=== PATIENT | female | born 1990 | race Caucasian/White ===

== ENCOUNTER 2018-03-28 11:53 | Emergency (ER) | payer OTHER, SELFPAY ==
[2018-03-28 12:12] VITALS: BP 142/90; PULSE 105; RESP 20; TEMP 37.3; O2SAT 100
--- NOTE | 2018-03-28 13:41 | DI.RAD.S_ITS ---
PROCEDURE: XR ABDOMEN MIN 2V INDICATIONS: Nausea vomiting generalized abdominal pain TECHNIQUE: 2 views of the abdomen were acquired. COMPARISON: None. FINDINGS: Surgical changes and devices: None. Bowel: No pneumoperitoneum. The bowel gas pattern is normal. Soft tissues: No masses; visualized solid organ contours appear normal in size. No suspicious abdominal calcifications. Bones: No suspicious bony abnormalities. IMPRESSION: No acute process. Dictated by: Carmen Mejia M.D. on 03/28/2018 at 14:30 Approved by: Carmen Mejia M.D. on 03/28/2018 at 14:30
[2018-03-28 13:45] VITALS: BP 126/84; PULSE 97; RESP 18; O2SAT 100
[2018-03-28 14:03] VITALS: BP 126/86; PULSE 90; RESP 19; O2SAT 100
[2018-03-28] MEDS: SODIUM CHLORIDE 0.9% 1,000 ML 1000 ML IV (14:03)
[2018-03-28] MEDS: KETOROLAC 60 MG/2 ML VIAL 30 MG IV (14:03)
[2018-03-28] MEDS: ONDANSETRON 4 MG/2 ML INJ IV (14:03)
[2018-03-28] MEDS: METOCLOPRAMIDE 10 MG/2 ML INJ IV (14:03)
[2018-03-28] MEDS: diphenhydrAMINE 50 MG/ML VIAL 25 MG IV (14:04)
[2018-03-28 14:06] LABS: Add Manual Diff / Slide Review NO; Basophils Percent Auto 0.2 % (0-2); Eosinophils Percent Auto 0.2 % (2-4); Hemoglobin 12.1 g/dL (12.0-16.0); Lymphocytes Percent Auto 15.9 % (25-40); Mean Corpuscular HGB Conc 34.5 % (30-36); Mean Corpuscular Hemoglobin 29.7 PG (26-34); Mean Corpuscular Volume 85.9 fL (80-100); Neutrophils Absolute Auto 4100 /uL (3000-5900); Neutrophils Percent Auto 74.7 % (50-75); Platelet Count 159 X10^3/uL (150-400); Red Blood Cell Count 4.07 X10^6/uL (4.0-5.2); Red Cell Distribution Width 13.3 % (11.6-14.8); White Blood Cell Count 5.5 X10^3/uL (4.5-11.0)
[2018-03-28 14:15] LABS: Alanine Aminotransferase 34 IU/L (9-52); Albumin Globulin Ratio 1.5 (1.0-2.8); Alkaline Phosphatase 57 U/L (38-126); Aspartate Aminotransferase 33 IU/L (14-36); BUN Creatinine Ratio 12.9 (6-22); Bilirubin Total 0.6 mg/dL (0.2-1.3); Blood Urea Nitrogen 9 mg/dL (7-17); Carbon Dioxide 25 mmol/L (22-32); Chloride 100 mmol/L (98-107); Estimated Glomerular Filt Rate > 60.0 mL/min (>60); Globulin 2.7 g/dL (1.7-4.1); Glucose 100 mg/dL (70-100); HEMOLYSIS < 15 (0-50); Lipase 42 U/L (23-300); Potassium 3.4 mmol/L (3.4-5.1); Sodium 139 mmol/L (137-145); Total Protein 6.7 g/dL (6.3-8.2)
--- NOTE | 2018-03-28 14:51 | ED_ITS ---
HPI - Abdominal Pain <LIZET Cuadra - Last Filed: 03/28/18 21:57> General Chief Complaint: Abdominal Pain Stated Complaint: GASTROENESTINAL ISSUES Time Seen by Provider: 03/28/18 13:34 Source: patient History of Present Illness HPI narrative: Healthy 27-year-old female here for complaint of having nausea vomiting diarrhea that started last night. She also reports having generalized crampy abdominal pain. She denies any contacts her family members having same symptoms. She reports decreased p.o. intake due to the nausea or vomiting. She denies any fevers but she states states that she had some mild chills. She denies any urinary symptoms. She stated she took Zofran early this morning to help with nausea. She does report that the nausea has not resolved. She denies any other concerns or complaints. Related Data Previous Rx's Medication Instructions Recorded ondansetron 4 mg PO Q6H PRN #10 tab 03/28/18 promethazine 12.5 mg PO Q4-6H PRN #10 tab 03/28/18 Allergies Allergy/AdvReac Type Severity Reaction Status Date / Time No Known Drug Allergies Allergy Verified 03/28/18 12:15 Review of Systems <LIZET Cuadra - Last Filed: 03/28/18 21:57> Constitutional Reports chills Eyes Denies change in vision, Denies eye discharge, Denies irritation and Denies loss of vision ENT Ears, Nose, Mouth, and Throat: Denies change in voice, Denies neck pain and Denies sore throat Cardiovascular Denies chest pain, Denies irregular heart rhythm, Denies lightheadedness, Denies palpitations, Denies dyspnea, Denies dyspnea on exertion and Denies orthopnea Respiratory Denies cough, Denies dyspnea, Denies dyspnea on exertion and Denies wheezing Gastrointestinal Gastrointestinal: Reports abdominal pain, Reports diarrhea, Reports nausea and Reports vomiting Genitourinary Denies hematuria, Denies flank pain, Denies urinary incontinence and Denies urinary urgency Musculoskeletal Denies neck pain Integumentary/Breasts Denies pruritus, Denies erythema, Denies rash and Denies wounds Neurologic Denies confusion and Denies loss of vision Psychiatric Denies anxiety, Denies confusion, Denies depression, Denies homicidal ideation and Denies suicidal ideation Endocrine Denies palpitations Hematologic/Lymphatic Denies easy bruising Allergic/Immunologic Denies wheezing Exam <LIZET Cuadra - Last Filed: 03/28/18 21:57> Initial Vital Signs Initial Vital Signs: Vital Signs Temperature 99.1 F 03/28/18 12:12 Pulse Rate 105 H 03/28/18 12:12 Respiratory Rate 20 03/28/18 12:12 Blood Pressure 142/90 H 03/28/18 12:12 Pulse Oximetry 100 03/28/18 12:12 Const General: cooperative and well developed Nutritional Appearance: well nourished Orientation: alert, awake, oriented x3 and not confused HENCA Mouth: oral mucosae normal and moist mucous membranes Eyes Conjunctivae: conjunctivae normal Sclera: sclerae normal Pupils: PERRL EOM: EOM intact bilaterally Resp Effort & Inspection: normal respiratory effort, able to speak in complete sentences, no respiratory distress and no use of accessory muscles Auscultation: clear to auscultation bilaterally, no rales, no rhonchi and no wheezes Cardio Rate: regular rate Rhythm: regular rhythm Heart Sounds: no click, no gallops, no murmurs and no rubs GI Inspection: non-distended Palpation: soft, no hepatosplenomegaly, No guarding, No pulsatile mass and tender (Generalized tenderness) Auscultation: normal bowel sounds General: No CVA tenderness Skin General: no rashes or lesions noted, No jaundice and No petechiae <Jolly Carrizales DO - Last Filed: 03/31/18 19:49> Initial Vital Signs Initial Vital Signs: Vital Signs Temperature 99.1 F 03/28/18 12:12 Pulse Rate 105 H 03/28/18 12:12 Respiratory Rate 20 03/28/18 12:12 Blood Pressure 142/90 H 03/28/18 12:12 Pulse Oximetry 100 03/28/18 12:12 Course <LIZET Cuadra - Last Filed: 03/28/18 21:57> Orders Ordered: Discontinued Medications Diphenhydramine HCl (Benadryl) 25 mg IV NOW ONE Stop: 03/28/18 13:41 Last Admin: 03/28/18 14:04 Dose: 25 mg Sodium Chloride (Normal Saline 0.9%) 1,000 mls @ 1,000 mls/hr IV BOLUS ONE Stop: 03/28/18 14:39 Last Infusion: 03/28/18 15:11 Dose: 0 mls/hr Admin: 03/28/18 14:03 Dose: 1,000 mls/hr Ketorolac Tromethamine (Toradol) 30 mg IV NOW ONE Stop: 03/28/18 13:41 Last Admin: 03/28/18 14:03 Dose: 30 mg Metoclopramide HCl (Reglan) 10 mg IV NOW ONE Stop: 03/28/18 13:41 Last Admin: 03/28/18 14:03 Dose: 10 mg Ondansetron HCl (Zofran) 4 mg IV NOW ONE Stop: 03/28/18 13:41 Last Admin: 03/28/18 14:03 Dose: 4 mg Vital Signs - 8 hr 03/28/18 14:03 03/28/18 15:03 Pulse Rate 90 97 H Respiratory Rate 19 15 Blood Pressure [Left Arm] 126/86 H 118/83 H Pulse Oximetry 100 100 <Jolly Carrizales DO - Last Filed: 03/31/18 19:49> Orders Ordered: Discontinued Medications Diphenhydramine HCl (Benadryl) 25 mg IV NOW ONE Stop: 03/28/18 13:41 Last Admin: 03/28/18 14:04 Dose: 25 mg Sodium Chloride (Normal Saline 0.9%) 1,000 mls @ 1,000 mls/hr IV BOLUS ONE Stop: 03/28/18 14:39 Last Infusion: 03/28/18 15:11 Dose: 0 mls/hr Admin: 03/28/18 14:03 Dose: 1,000 mls/hr Ketorolac Tromethamine (Toradol) 30 mg IV NOW ONE Stop: 03/28/18 13:41 Last Admin: 03/28/18 14:03 Dose: 30 mg Metoclopramide HCl (Reglan) 10 mg IV NOW ONE Stop: 03/28/18 13:41 Last Admin: 03/28/18 14:03 Dose: 10 mg Ondansetron HCl (Zofran) 4 mg IV NOW ONE Stop: 03/28/18 13:41 Last Admin: 03/28/18 14:03 Dose: 4 mg Vital Signs - 8 hr 03/28/18 14:03 03/28/18 15:03 Pulse Rate 90 97 H Respiratory Rate 19 15 Blood Pressure [Left Arm] 126/86 H 118/83 H Pulse Oximetry 100 100 MDM - Abdominal Pain <Luis Miguel McgovernLIZET - Last Filed: 03/28/18 21:57> Lab Data Result diagrams: 03/28/18 13:58 03/28/18 13:58 Lab Results 03/28/18 03/28/18 Range/Units 13:58 13:58 WBC 5.5 (4.5-11.0) X10^3/uL RBC 4.07 (4.0-5.2) X10^6/uL Hgb 12.1 (12.0-16.0) g/dL Hct 35.0 L (36-46) % MCV 85.9 (80-100) fL MCH 29.7 (26-34) PG MCHC 34.5 (30-36) % RDW 13.3 (11.6-14.8) % Plt Count 159 (150-400) X10^3/uL Neut % (Auto) 74.7 (50-75) % Lymph % (Auto) 15.9 L (25-40) % [place] % (Auto) 9.0 (3-14) % Eos % (Auto) 0.2 L (2-4) % Baso % (Auto) 0.2 (0-2) % Neut # (Auto) 4100 (3938-2239) /uL Sodium 139 (137-145) mmol/L Potassium 3.4 (3.4-5.1) mmol/L Chloride 100 (98-107) mmol/L Carbon Dioxide 25 (22-32) mmol/L BUN 9 (7-17) mg/dL Creatinine 0.70 (0.52-1.04) mg/dL Estimated GFR > 60.0 (>60) mL/min BUN/Creatinine Ratio 12.9 (6-22) Glucose 100 (70-100) mg/dL Calcium 9.0 (8.4-10.2) mg/dL Total Bilirubin 0.6 (0.2-1.3) mg/dL AST 33 (14-36) IU/L ALT 34 (9-52) IU/L Alkaline Phosphatase 57 (38-126) U/L Total Protein 6.7 (6.3-8.2) g/dL Albumin 4.0 (3.5-5.0) g/dL Globulin 2.7 (1.7-4.1) g/dL Albumin/Globulin Ratio 1.5 (1.0-2.8) Lipase 42 (23-300) U/L Imaging Data Abdominal x-ray: Radiologist's impression: PROCEDURE: XR ABDOMEN MIN 2V INDICATIONS: Nausea vomiting generalized abdominal pain TECHNIQUE: 2 views of the abdomen were acquired. COMPARISON: None. FINDINGS: Surgical changes and devices: None. Bowel: No pneumoperitoneum. The bowel gas pattern is normal. Soft tissues: No masses; visualized solid organ contours appear normal in size. No suspicious abdominal calcifications. Bones: No suspicious bony abnormalities. IMPRESSION: No acute process. Dictated by: Carmen Mejia M.D. on 03/28/2018 at 14:30 Approved by: Carmen Mejia M.D. on 03/28/2018 at 14:30 [facility] Narrative Medical decision making narrative: X-ray of the abdomen was obtained was negative for any acute findings. CBC Chem panel and lipase was unremarkable. Urinalysis was negative for UTI and urine was negative. Signs and symptoms presents as acute gastroenteritis most likely viral in nature. She was treated with antiemetics and fluids in the emergency room which helped her to feel better. She is prescribed Zofran and Phenergan for nausea. Plenty of fluids slowly advance diet as tolerated. Follow up with primary care provider. Return emergency room for any worsening symptoms. <Jolly Carrizales, - Last Filed: 03/31/18 19:49> Lab Data Lab Results 03/28/18 03/28/18 Range/Units 13:58 13:58 WBC 5.5 (4.5-11.0) X10^3/uL RBC 4.07 (4.0-5.2) X10^6/uL Hgb 12.1 (12.0-16.0) g/dL Hct 35.0 L (36-46) % MCV 85.9 (80-100) fL MCH 29.7 (26-34) PG MCHC 34.5 (30-36) % RDW 13.3 (11.6-14.8) % Plt Count 159 (150-400) X10^3/uL Neut % (Auto) 74.7 (50-75) % Lymph % (Auto) 15.9 L (25-40) % [place] % (Auto) 9.0 (3-14) % Eos % (Auto) 0.2 L (2-4) % Baso % (Auto) 0.2 (0-2) % Neut # (Auto) 4100 (0325-7419) /uL Sodium 139 (137-145) mmol/L Potassium 3.4 (3.4-5.1) mmol/L Chloride 100 (98-107) mmol/L Carbon Dioxide 25 (22-32) mmol/L BUN 9 (7-17) mg/dL Creatinine 0.70 (0.52-1.04) mg/dL Estimated GFR > 60.0 (>60) mL/min BUN/Creatinine Ratio 12.9 (6-22) Glucose 100 (70-100) mg/dL Calcium 9.0 (8.4-10.2) mg/dL Total Bilirubin 0.6 (0.2-1.3) mg/dL AST 33 (14-36) IU/L ALT 34 (9-52) IU/L Alkaline Phosphatase 57 (38-126) U/L Total Protein 6.7 (6.3-8.2) g/dL Albumin 4.0 (3.5-5.0) g/dL Globulin 2.7 (1.7-4.1) g/dL Albumin/Globulin Ratio 1.5 (1.0-2.8) Lipase 42 (23-300) U/L Discharge Plan Departure Patient Disposition: Home, Self-Care Clinical Impression: Nausea vomiting and diarrhea Discharge Date/Time: 03/28/18 15:18 Interventions: ED Discharge Assessment Last Done: 03/28/18 15:18 Instructions: DI for Viral Gastroenteritis -- Adult Activity Restrictions/Additional Instructions: Laboratory results and imaging today were unremarkable. Signs and symptoms presents as a viral illness. Use Zofran for nausea. May use Phenergan for breakthrough nausea that the Zofran does not comfort. Plenty of fluids. Slowly advance diet as tolerated. Follow up with primary care provider in the next few days for re-evaluation. For any worsening symptoms return to the emergency room. Prescriptions: New promethazine 12.5 mg tablet 12.5 mg PO Q4-6H PRN (Reason: nausea and vomiting) Qty: 10 RF: 0 ondansetron 4 mg tablet,disintegrating 4 mg PO Q6H PRN (Reason: nausea and vomiting) Qty: 10 RF: 0 Referrals: Christine Hodge ARNP [Primary Care Provider] - <Jolly Carrizales DO - Last Filed: 03/31/18 19:49> Cosign ED Attending Leighton Attestation: I was immediately available in the department for consultation. Documentation has been reviewed. I agree with assessment and plan.
[2018-03-28 15:03] VITALS: BP 118/83; PULSE 97; RESP 15; O2SAT 100
== END 2018-03-28 15:18 | disposition home or self-care (01) ==
PROVIDERS: Emergency Provider Nurse Practitioner Family; PCP Nurse Practitioner Family
DX: R11.2 Nausea with vomiting, unspecified (principal); R19.7 Diarrhea, unspecified
CPT/HCPCS: 74019; 80053; 81003; 81025; 83690; 85025; 96361; 96374; 96375; 99283; 99284; J1200; J1885; J2405; J2765

== ENCOUNTER 2021-09-20 08:40 | Emergency (ER) | payer BC, SELFPAY ==
[2021-09-20 09:00] VITALS: BP 129/74; PULSE 122; RESP 22; TEMP 37.2; O2SAT 96; BMI 21.4
--- NOTE | 2021-09-20 09:16 | ED_ITS ---
HPI - Allergic Reaction General Chief complaint: Allergic Reaction Stated complaint: hives t-4 joints hurt Time Seen by Provider: 09/20/21 08:56 Source: patient Mode of arrival: Ambulatory History of Present Illness HPI narrative: The patient has been ill for about 4 days. She has a sore throat, rhinorrhea. She has minimal cough. She has no fever chills. She has arthralgia. To his rash around her flanks. She has no rash on her face or neck or on her extremities. She admits that the erythema is the sites where she is scratching. She denies chronic skin disease. 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 The dexamethasone is causing anxiety. COVID- 19 testing was done at her office and is negative. She has received the COVID- 19 immunizations. She has no obvious exposure, but she is around patient's at work and has a preschooler in public school. Related Data Home Medications Medication Instructions Recorded Confirmed citalopram 20 mg tablet 20 mg PO DAILY 09/20/21 09/20/21 norethindrone acetate 1 mg-ethinyl 1 tab PO DAILY 09/20/21 09/20/21 estradiol 20 mcg tablet (Microgestin) Allergies Allergy/AdvReac Type Severity Reaction Status Date / Time No Known Drug Allergies Allergy Verified 09/20/21 09:16 Review of Systems Constitutional Constitutional: Reports as per HPI, Denies chills, Denies fever(s) and Reports malaise Eyes Eyes: Denies blurry vision, Denies change in vision and Denies itchy eyes ENT Ears, Nose, Mouth, and Throat: Denies vertigo, Denies dizziness, Denies dry mouth, Denies lip swelling, Denies mouth lesions, Denies nasal congestion and Reports sore throat Cardiovascular Cardiovascular: Denies chest pain Respiratory Respiratory: Denies cough and Denies wheezing Gastrointestinal Gastrointestinal: Denies abdominal pain, Reports nausea and Denies vomiting Genitourinary Genitourinary: Denies dysuria Musculoskeletal Musculoskeletal: Denies joint swelling and Denies limited range of motion Comments: She complains of arthralgia and myalgia, she specificlly complains of swelling and discomfort in the knuckles of her hands. Neurologic Neurologic: Denies vertigo and Denies dizziness Psychiatric Psychiatric: Reports as per HPI and Reports anxiety Allergic/Immunologic Allergic/Immunologic: Reports urticaria, Denies itchy eyes, Denies lip swelling, Denies seasonal rhinorrhea and Denies wheezing Patient History Medical History (Updated 09/20/21 @ 10:40 by Angel Muller MD) Anxiety Social History Smoking Status: Never smoker Smoking Status: Never smoker alcohol intake frequency: 0-2 drinks per day Substance Use Type: does not use Exam Initial Vital Signs Initial Vital Signs: Vital Signs Temperature 98.9 F 09/20/21 09:00 Pulse Rate 122 H 09/20/21 09:00 Respiratory Rate 22 09/20/21 09:00 Blood Pressure 129/74 09/20/21 09:00 Pulse Oximetry 96 09/20/21 09:00 Const General: cooperative, healthy appearing and comfortable HENMT Head: normal to inspection, normocephalic and atraumatic Face and sinus: normal facial exam Mouth: other (Mild oropharyngeal erythema, no exudate or tonsillar hypertrophy.) Eyes General: appearance normal, both eyes and all related structures Conjunctivae: conjunctivae normal Sclera: sclerae normal Neck Neck: full ROM, no meningeal signs and No lymphadenopathy Chest Chest: normal inspection of the chest Resp Auscultation: clear to auscultation bilaterally Cardio Rate: regular rate Rhythm: regular rhythm Heart Sounds: S1 normal, S2 normal and no murmurs GI Palpation: soft, No guarding, No mass and No tender Auscultation: normal bowel sounds Back/Spine/Pelvis Back: normal to inspection Thoracic/Lumbar Spine: thoracic and lumbar spine normal to inspection Skin General: No ecchymosis Other: Small, diffuse areas of tell erythema on her back. Intense erythema on her abdomen and flanks where he she is scratching. Erythema matches scratch chávez. No significant erythema on extremities. Course Course Course Narrative: The exam/ elevation is mostly consistent with a viral syndrome. She has slight or pharyngeal erythema, rash on her back, and erythema on her flanks where she is scratching. COVID-19 test is negative. Rapid strep test is negative. Orders Ordered: ED Orders 09/20/21 09:10 COVID19 -Nasal swab/Pre-Proc Stat 09/20/21 09:19 Strep Grp A by PCR Rapid Stat Discontinued Medications Ibuprofen (Ibuprofen 400 Mg Tablet) 400 mg PO NOW ONE Stop: 12/10/21 09:38 Last Admin: 09/20/21 09:45 Dose: 400 mg Documented by: MAURIZIO Vital Signs Vital signs: Vital Signs - 8 hr 09/20/21 09:00 09/20/21 09:18 09/20/21 09:30 Temperature 98.9 F Pulse Rate 122 H 113 H 116 H Respiratory Rate 22 18 18 Blood Pressure 129/74 129/74 121/77 Pulse Oximetry 96 95 95 09/20/21 10:00 Temperature Pulse Rate 108 H Respiratory Rate 18 Blood Pressure 111/71 Pulse Oximetry 96 MDM - Allergic Reaction Lab Data Labs: Lab Results 09/20/21 09/20/21 Range/Units 09:10 09:19 SARS-CoV-2 (PCR) Negative (Negative) Group A Strep (PCR) Negative (Negative) Discharge Plan Departure Patient Disposition: Home Clinical Impression: Acute viral syndrome Instructions: DI for Viral Syndrome Activity Restrictions/Additional Instructions: Do your best to avoid scratching. Zyrtec 1 tablet daily as prescribed. Benadryl 1 tablet every 4-6 hours as needed for added treatment for the itching. No work until symptoms resolve. Return here as necessary. Prescriptions: No Action citalopram 20 mg tablet 20 mg PO DAILY 0RF norethindrone ac-eth estradiol [Microgestin 10/31 ()] 1-20 mg-mcg tablet 1 tab PO DAILY 0RF Referrals: Christine Hodge ARNP [Primary Care Provider] - Stand Alone Forms: Work Release Note
[2021-09-20 09:18] VITALS: BP 129/74; PULSE 113; RESP 18; O2SAT 95
[2021-09-20 09:30] VITALS: BP 121/77; PULSE 116; RESP 18; O2SAT 95
[2021-09-20 09:36] LABS: COVID19 -Nasal RAPID Negative (Negative)
[2021-09-20] MEDS: IBUPROFEN 400 MG TABLET PO (09:45)
[2021-09-20 10:00] VITALS: BP 111/71; PULSE 108; RESP 18; O2SAT 96
[2021-09-20 10:05] LABS: Strep Grp A by PCR Rapid Negative (Negative)
[2021-09-20 10:30] VITALS: BP 109/66; PULSE 109; RESP 18; O2SAT 95
== END 2021-09-20 10:51 | disposition home or self-care (01) ==
PROVIDERS: Emergency Provider Emergency Medicine; PCP Nurse Practitioner Family
DX: B34.9 Viral infection, unspecified (principal); Z20.822 Contact with and (suspected) exposure to COVID-19
CPT/HCPCS: 87635; 87651; 99282; 99283; C9803